=== PATIENT | male | born 1975 | race Caucasian/White ===

== ENCOUNTER 2023-02-01 10:53 | Emergency (ER) | payer MEDICAID ==
[~2023-02-01] VITALS: Ht 162.6 cm; Wt 66.0 kg
[2023-02-01 11:13] VITALS: O2SAT 99
[2023-02-01 11:41] VITALS: BP 159/96; PULSE 65; RESP 18; TEMP 98.3
== END 2023-02-01 11:42 | disposition home or self-care (01) ==
LOC: ER 10:53
DX: R10.9 Unspecified abdominal pain (principal); R19.7 Diarrhea, unspecified; Z00.00 Encounter for general adult medical examination without abnormal findings
CPT/HCPCS: 99281

== ENCOUNTER 2024-09-03 14:08 | Emergency (ER) | payer MEDICAID ==
[~2024-09-03] VITALS: Ht 162.6 cm; Wt 65.7 kg
[2024-09-03 14:10] VITALS: O2SAT 100
[2024-09-03 16:05] LABS: EOSINOPHILS % 1.3 % (0.0-5.0); HEMATOCRIT. 40.7 % (42.0-52.0); HEMOGLOBIN. 13.7 g/dL (14.0-18.0); LYMPHOCYTES % 12.1 % (20.0-50.0); MEAN CORPUSCULAR HEMOGLOBIN 32.4 pg (28.0-32.0); MEAN CORPUSCULAR HGB CONC 33.8 g/dL (31.0-37.0); MEAN CORPUSCULAR VOLUME 95.8 fL (80.0-94.0); MEAN PLATELET VOLUME 8.3 fl (7.4-10.4); NEUTROPHILS % 73.6 % (40.0-76.0); PLATELET 168 x1000/uL (130-400); RED BLOOD CELL COUNT 4.24 mill/uL (4.7-6.1); RED CELL DISTRIBUTION WIDTH 14.8 % (11.6-14.6); WHITE BLOOD COUNT 7.2 x1000/uL (4.5-11.0)
[2024-09-03 16:52] LABS: CHLORIDE 99 mEq/L (98-107); SODIUM 134 mEq/L (136-145)
[2024-09-03 16:53] LABS: CALCIUM 9.8 mg/dL (8.7-10.4); CARBON DIOXIDE 27 mEq/L (21-32)
[2024-09-03 16:58] LABS: CREATININE 0.9 mg/dL (0.6-1.3); GLUCOSE 109 mg/dL (70-105); TROPONIN I HIGH SENSITIVITY 4 ng/L (3.0-53); UREA NITROGEN BLOOD 8 mg/dL (9-23)
[2024-09-03 17:00] LABS: ALANINE AMINOTRANSFERASE 86 IU/L (10-49); ALBUMIN 4.4 g/dL (3.2-4.8); ASPARTATE AMINOTRANSFERASE 136 IU/L (<34); BILIRUBIN DIRECT 0.2 mg/dL (<=3.0); ETHANOL BLOOD < 10 mg/dL (<10)
[2024-09-03 17:01] LABS: BILIRUBIN TOTAL 0.8 mg/dL (0.1-1.0); PROTEIN TOTAL 7.4 g/dL (6.0-8.3)
[2024-09-03 18:08] VITALS: BP 135/87; PULSE 78; RESP 18; TEMP 37.1; O2SAT 99
== END 2024-09-03 18:32 | disposition home or self-care (01) ==
LOC: ER 14:08
DX: G47.00 Insomnia, unspecified (principal); F10.129 Alcohol abuse with intoxication, unspecified; Y90.0 Blood alcohol level of less than 20 mg/100 ml
CPT/HCPCS: 36415; 80048; 80076; 80320; 84484; 85025; 93005; 99284; G0480

== ENCOUNTER 2024-09-05 23:55 | Emergency (ER) | payer MEDICAID, OTHER ==
[~2024-09-05] VITALS: Ht 162.6 cm; Wt 66.3 kg
[2024-09-06 00:15] VITALS: BP 145/104; RESP 16; TEMP 36.7; O2SAT 99
[2024-09-06 00:20] VITALS: PULSE 114; O2SAT 97
[2024-09-06 01:38] LABS: BASOPHILS % 2.1 % (0.0-2.0); EOSINOPHILS % 1.6 % (0.0-5.0); HEMATOCRIT. 35.4 % (42.0-52.0); HEMOGLOBIN. 12.2 g/dL (14.0-18.0); LYMPHOCYTES % 25.8 % (20.0-50.0); MEAN CORPUSCULAR HEMOGLOBIN 33.2 pg (28.0-32.0); MEAN CORPUSCULAR HGB CONC 34.5 g/dL (31.0-37.0); MEAN CORPUSCULAR VOLUME 96.3 fL (80.0-94.0); MEAN PLATELET VOLUME 7.8 fl (7.4-10.4); MONOCYTES % 11.9 % (2.0-8.0); NEUTROPHILS % 58.6 % (40.0-76.0); PLATELET 198 x1000/uL (130-400); RED BLOOD CELL COUNT 3.68 mill/uL (4.7-6.1); RED CELL DISTRIBUTION WIDTH 15.3 % (11.6-14.6); WHITE BLOOD COUNT 6.6 x1000/uL (4.5-11.0)
[2024-09-06 01:42] LABS: CHLORIDE 103 mEq/L (98-107); POTASSIUM 3.5 mEq/L (3.5-5.1); SODIUM 135 mEq/L (136-145)
[2024-09-06 01:43] LABS: CARBON DIOXIDE 25 mEq/L (21-32)
[2024-09-06 01:44] LABS: CALCIUM 9.4 mg/dL (8.7-10.4)
[2024-09-06 01:48] LABS: CREATININE 0.8 mg/dL (0.6-1.3); GLUCOSE 99 mg/dL (70-105)
[2024-09-06 01:49] LABS: UREA NITROGEN BLOOD 7 mg/dL (9-23)
[2024-09-06 01:50] LABS: ALANINE AMINOTRANSFERASE 121 IU/L (10-49); ALBUMIN 4.3 g/dL (3.2-4.8); ASPARTATE AMINOTRANSFERASE 139 IU/L (<34)
[2024-09-06 01:51] LABS: BILIRUBIN TOTAL 0.7 mg/dL (0.1-1.0); PROTEIN TOTAL 7.2 g/dL (6.0-8.3)
[2024-09-06] MEDS: CHLORDIAZEPOXIDE 25MG CAPSULE PO ONE (01:58)
[2024-09-06 02:11] LABS: ETHANOL BLOOD < 10 mg/dL (<10)
== END 2024-09-06 04:00 | disposition left against medical advice (07) ==
LOC: ER 23:55
DX: F10.90 Alcohol use, unspecified, uncomplicated (principal); R25.1 Tremor, unspecified; Z98.890 Other specified postprocedural states; Y90.9 Presence of alcohol in blood, level not specified
CPT/HCPCS: 36415; 80053; 80320; 85025; 99283; G0480